=== PATIENT | female | born 1990 | race Two or more races ===

== ENCOUNTER 2024-01-15 10:42 | Emergency (ER) | payer OTHER ==
[2024-01-15 10:51] VITALS: BP 122/87; PULSE 63; RESP 18; TEMP 98; BMI 41.1
[2024-01-15] MEDS ORDERED: ACETAMINOPHEN 500 MG TABLET (FP) ONE (11:46)
[2024-01-15] MEDS: ACETAMINOPHEN 500 MG TABLET (FP) PO ONE (11:50)
[2024-01-15] MEDS ORDERED: KETOROLAC TROMETHAMINE 30 MG/1 ML VIAL ONE (12:17)
[2024-01-15] MEDS ORDERED: METHOCARBAMOL 500 MG TABLET ONE (12:17)
[2024-01-15] MEDS: METHOCARBAMOL 500 MG TABLET PO ONE (12:21)
[2024-01-15] MEDS: KETOROLAC TROMETHAMINE 30 MG/1 ML VIAL IM ONE (12:21)
== END 2024-01-15 14:07 | disposition home or self-care (01) ==
LOC: JERFT 10:42
PROC: 3E0233Z Introduction of Anti-inflammatory into Muscle, Percutaneous Approach (ICD-10-PCS; principal; 2024-01-15)
DX: M50.20 Other cervical disc displacement, unspecified cervical region (principal); M54.50 Low back pain, unspecified; V49.50XA Passenger injured in collision with unspecified motor vehicles in traffic accident, initial encounter
CPT/HCPCS: 72100-TC-FY; 72125-TC; 84703; 99284-25